=== PATIENT | female | born 1945 | race Caucasian/White ===

== ENCOUNTER 2017-12-20 06:59 | Inpatient (IN) | payer MEDICARE, BC ==
[~2017-12-20] VITALS: Ht 175.3 cm; Wt 50.0 kg
[2017-12-20] MEDS ORDERED: LORazepam 2 mg/ml vial IV ONE ×2 (07:55→10:45)
[2017-12-20 08:41] LABS: BASOPHILS % (AUTO) 0.2 % (0-1); EOSINOPHILS # (AUTO) 0.2 X10'3 (0-0.9); EOSINOPHILS % (AUTO) 1.4 % (0-6); HEMATOCRIT 40.2 % (35.0-45.0); HEMOGLOBIN 13.9 g/dl (12.0-16.0); LYMPHOCYTES % (AUTO) 13.2 % (21-51); MEAN CORPUSCULAR HGB CONC 34.4 % (33.0-36.5); MEAN PLATELET VOLUME 7.3 FL (7.4-10.4); MONOCYTES # (AUTO) 0.6 X10'3 (0-0.9); MONOCYTES % (AUTO) 3.8 % (2-12); NEUTROPHILS # (AUTO) 12.4 X10'3 (1.8-7.7); NEUTROPHILS % (AUTO) 81.4 % (42-75); PLATELET COUNT 335 X10'3 (140-440); RED BLOOD COUNT 4.32 X10'6 (4.20-5.60); RED CELL DISTRIBUTION WIDTH 13.6 % (11.5-14.5); WHITE BLOOD COUNT 15.2 X10'3 (4.5-11.0)
[2017-12-20 08:55] LABS: ALANINE AMINOTRANSFERASE 17 U/L (12-78); ALBUMIN 3.6 G/DL (3.4-5.0); ALBUMIN/GLOBULIN RATIO 0.9 (1.1-1.5); ALKALINE PHOSPHATASE 97 IU/L (46-116); ANION GAP 18 (8-16); ASPARTATE AMINO TRANSFERASE 23 U/L (10-37); BILIRUBIN,TOTAL 0.3 MG/DL (0.1-1.0); BLOOD UREA NITROGEN 12 MG/DL (7-18); BUN/CREATININE RATIO 11.3 (6.6-38.0); CALCIUM 9.3 MG/DL (8.5-10.1); CHLORIDE 106 MMOL/L (99-107); CREATININE 1.06 MG/DL (0.40-0.90); GLUCOSE 123 MG/DL (70-104); MAGNESIUM 2.2 MG/DL (1.5-2.4); POTASSIUM 3.5 MMOL/L (3.5-5.1); SODIUM 145 MMOL/L (135-145); TOTAL CARBON DIOXIDE 21.3 MMOL/L (24-32); TOTAL PROTEIN 7.4 G/DL (6.4-8.2); eGFR 51 ML/MIN
[2017-12-20 09:18] LABS: PARTIAL THROMBOPLASTIN TIME 24 SECONDS (22-32); PROTHROMBIN TIME 10.5 SECONDS (9.0-12.0)
[2017-12-20 09:22] LABS: CLARITY,URINE Clear (Clear); COLOR,URINE Yellow (Yellow); GLUCOSE, URINE Negative (Neg); KETONES,URINE Negative (Neg); LEUKOCYTE ESTERASE ,URINE Negative (Neg); NITRITES, URINE Negative (Neg); OCCULT BLOOD,URINE Negative (Neg); PROTEIN,URINE Negative (Neg); UROBILINOGEN,URINE 0.2 E.U/dL (0.2-1.0)
[2017-12-20 09:24] LABS: UA COLLECTION TYPE STRAIGHT CATH
[2017-12-20] MEDS ORDERED: normal saline 1000ML IV soln IVB ONE (09:35)
[2017-12-20] MEDS ORDERED: magnesium hydroxide 30ml (MOM) UD suspension PO PRN (10:25)
[2017-12-20] MEDS ORDERED: mag hydrox/Alum hydrox/simeth 30ml oral suspension PO PRN (10:25)
[2017-12-20] MEDS ORDERED: acetaminophen 325mg tablet PO PRN (10:25)
[2017-12-20] MEDS ORDERED: HYDROcodone/acetaminophen 5mg/325mg tablet PO PRN (10:25)
[2017-12-20] MEDS ORDERED: ondansetron/PF 4mg/2ml inj IV PRN (10:25)
[2017-12-20] MEDS: sodium chloride 0.45% 1,000 ML IV SCH ×2 (11:00→21:36)
[2017-12-20] MEDS ORDERED: OLAN5TAB5 PO ×2 (11:01)
[2017-12-20] MEDS ORDERED: LISI10TA4 PO (11:01)
[2017-12-20] MEDS ORDERED: MEMA5TAB PO (11:01)
[2017-12-20] MEDS ORDERED: SERT25TA PO (11:01)
[2017-12-20] MEDS ORDERED: MIRT7.5T11 PO (11:01)
[2017-12-20] MEDS ORDERED: RIVA1PAT3 TOP (11:01)
[2017-12-20] MEDS ORDERED: LORA-269 PO (11:03)
[2017-12-20 16:15] VITALS: BP 150/80
[2017-12-20] MEDS ORDERED: cefTRIAXone 1g/NS 100ml IVPB 100 ML IV ONE (17:10)
[2017-12-20] MEDS ORDERED: OLANZapine **IM** 10 mg inj. IM ONE (17:15)
[2017-12-20] MEDS ORDERED: temazepam 15mg capsule PO PRN (21:00)
[2017-12-20 22:00] VITALS: BP 144/90
[2017-12-21 06:00] VITALS: BP 152/69
[2017-12-21] MEDS: sodium chloride 0.45% 1,000 ML IV SCH (06:25)
[2017-12-21] MEDS ORDERED: cefTRIAXone 1g/NS 100ml IVPB 100 ML IV SCH (08:00)
[2017-12-21] MEDS ORDERED: RIVASTIGMINE TD SCH (08:45)
[2017-12-21] MEDS ORDERED: sertraline 50mg tablet PO SCH (08:45)
[2017-12-21] MEDS ORDERED: OLANZapine 5mg rapidly disint. tablet PO SCH ×2 (08:45→21:00)
[2017-12-21] MEDS ORDERED: OLAN5TAB5 PO (08:53)
[2017-12-21] MEDS ORDERED: AMOX-580 PO (08:57)
[2017-12-21 11:00] VITALS: BP 163/81
[2017-12-21] MEDS ORDERED: lactobacillus rhamnosus 10,000 MMU CELLS/CAPSULE PO SCH (17:30)
[2017-12-21] MEDS ORDERED: amox tr/potassium clavulanate 500mg/125mg TAB PO SCH (17:30)
[2017-12-21] MEDS ORDERED: memantine 5mg tablet PO SCH (20:00)
[2017-12-21] MEDS ORDERED: mirtazapine 15mg tablet PO SCH (21:00)
[2017-12-22] MEDS ORDERED: LORazepam 2 mg/ml vial IV SCH (08:00)
== END 2017-12-21 13:15 | disposition home or self-care (01) | DRG 101 ==
LOC: ER 06:59 → ED HOLD 10:25 → ORTHO 4S 16:49
PROVIDERS: ADMIT Internal Medicine; ATTEND Internal Medicine
DX: G40.901 Epilepsy, unspecified, not intractable, with status epilepticus (principal); E87.2 Acidosis; F02.81 Dementia in other diseases classified elsewhere, unspecified severity, with behavioral disturbance; G30.9 Alzheimer's disease, unspecified; D72.829 Elevated white blood cell count, unspecified; E86.0 Dehydration; Z66 Do not resuscitate; Z79.899 Other long term (current) drug therapy
CPT/HCPCS: 36415; 70450; 71045; 80053; 81003; 83605; 83735; 84484; 85025; 85610; 85730; 87040; 87070; 93005; 96361; 96374; 97116; 97161; 97530; 99285; A6213; J0696; J2060; J7030; J7042